=== PATIENT | male | born 1970 | race Two or more races ===

== ENCOUNTER 2025-03-12 07:20 | Emergency (ER) | payer MEDICAID ==
[~2025-03-12] VITALS: Ht 167.6 cm; Wt 106.6 kg
[2025-03-12 07:38] VITALS: TEMP 98
[2025-03-12] MEDS ORDERED: KETOROLAC TROMETHAMINE INJ 30 MG/ML VIAL ONE (08:00)
[2025-03-12] MEDS: KETOROLAC TROMETHAMINE INJ 30 MG/ML VIAL IM ONE (08:00)
[2025-03-12] MEDS ORDERED: KETO10TA2 PO (08:37)
[2025-03-12] MEDS ORDERED: PRED50TA PO (08:37)
[2025-03-12 08:46] VITALS: O2SAT 97
== END 2025-03-12 08:49 | disposition home or self-care (01) ==
LOC: ER 07:37
DX: R22.42 Localized swelling, mass and lump, left lower limb (principal); M79.675 Pain in left toe(s); M10.9 Gout, unspecified; I11.9 Hypertensive heart disease without heart failure; E11.9 Type 2 diabetes mellitus without complications; E78.00 Pure hypercholesterolemia, unspecified; Z79.52 Long term (current) use of systemic steroids
CPT/HCPCS: 99283; 96372; 73630; J1885